=== PATIENT | female | born 1965 | race African-American/Black ===

== ENCOUNTER 2017-12-04 19:32 | Emergency (ER) | payer OTHER ==
[~2017-12-04] VITALS: Ht 162.6 cm; Wt 107.5 kg
--- NOTE | 2017-12-04 22:00 | Diagnostic Imaging Report ---
EXAM: Left lower extremity venous duplex imaging INDICATION: Left calf pain COMPARISON: None TECHNIQUE: Sargent scale, color Doppler and spectral waveform analysis of the left lower extremity deep venous system was performed. FINDINGS: LEFT LOWER EXTREMITY: Normal waveform response to augmentation. Common Femoral: Fully compressible with normal spontaneous waveforms. Femoral: Fully compressible with normal spontaneous waveforms. Proximal Greater Saphenous: Fully compressible. Proximal Profunda (Deep Femoral): Normal spontaneous waveforms. Popliteal: Fully compressible with normal spontaneous waveforms. IMPRESSION: No evidence of deep venous thrombosis above the left calf. Signed by: Dr. Whitney Garcia M.D. on 12/04/2017 9:56 PM
== END 2017-12-04 22:11 | disposition home or self-care (01) ==
LOC: FSED 19:32
DX: M79.662 Pain in left lower leg (principal)
CPT/HCPCS: 93971; 99283